=== PATIENT | male | born 1995 ===

== ENCOUNTER 2025-02-11 16:40 | Emergency (ER) | payer SELFPAY ==
[2025-02-11] MEDS: Lidocaine 1% with EPINEPHrine 1:100,000 20 ML MDV INJECT ONE (17:07)
[2025-02-11] MEDS: Diphtheria,Pertussis(Acell),Tetanus Vaccine 0.5 ML Syringe IM ONE (17:07)
[2025-02-11] MEDS: Bacitracin Oint 1 GM U/D Packet TOP ONE (17:44)
== END 2025-02-11 17:46 | disposition home or self-care (01) ==
LOC: DL.ED 16:40
DX: S41.111A Laceration without foreign body of right upper arm, initial encounter (principal); W26.8XXA Contact with other sharp object(s), not elsewhere classified, initial encounter; Z23 Encounter for immunization
CPT/HCPCS: 12002; 90471; 90715; 99282; A9270; J2004; 99283